=== PATIENT | male | born 1995 | race Caucasian/White ===

== ENCOUNTER 2018-05-29 23:44 | Emergency (ER) | payer OTHER ==
[~2018-05-29] VITALS: Ht 180.3 cm; Wt 115.9 kg
[2018-05-30] MEDS ORDERED: PERCOCET 5/325M1 TAB PO (00:54)
[2018-05-30 01:20] VITALS: BP 128/74
== END 2018-05-30 01:28 | disposition home or self-care (01) ==
LOC: ED 23:44
DX: S92.311A Displaced fracture of first metatarsal bone, right foot, initial encounter for closed fracture (principal); W22.8XXA Striking against or struck by other objects, initial encounter; Y92.009 Unspecified place in unspecified non-institutional (private) residence as the place of occurrence of the external cause

== ENCOUNTER 2020-12-27 20:24 | Emergency (ER) | payer OTHER ==
[~2020-12-27] VITALS: Ht 180.3 cm; Wt 115.0 kg
[~2020-12-27 20:24] MED LIST: PERCOCET 5/325M1 TAB PO
[2020-12-27 21:01] LABS: HEMATOCRIT 44.3 % (39.0-50.0); HEMOGLOBIN 15.1 g/dl (14.0-18.0); IMMATURE GRANULOCYTES 0.5 % (0.0-5.0); MEAN CELL VOLUME 84.4 fL CALC (80.0-100.0); MEAN CORPUSCULAR HGB 28.8 pG CALC (26.0-32.0); MEAN CORPUSCULAR HGB CONC 34.1 g/dL CAL (32.0-36.0); NEUT# 4.01 thou/uL (1.82-7.42); RED BLOOD COUNT 5.25 mill/uL (4.70-6.10); RED CELL DISTRI WIDTH 12.3 % (11.5-15.5)
[2020-12-27 21:59] VITALS: BP 137/61
== END 2020-12-27 21:59 | disposition home or self-care (01) ==
LOC: ED 20:24
PROVIDERS: Family Medicine
DX: B34.9 Viral infection, unspecified (principal); Z20.822 Contact with and (suspected) exposure to COVID-19

== ENCOUNTER 2021-06-02 14:38 | Emergency (ER) | payer OTHER ==
[2021-06-02] MEDS ORDERED: ZPAK PO (18:06)
[2021-06-02 18:20] VITALS: BP 127/70
== END 2021-06-02 18:30 | disposition home or self-care (01) ==
LOC: ED 14:38
DX: U07.1 COVID-19 (principal)

== ENCOUNTER 2021-06-07 20:04 | Emergency (ER) | payer OTHER ==
[~2021-06-07] VITALS: Ht 180.3 cm; Wt 113.0 kg
[~2021-06-07 20:04] MED LIST changes: +ZPAK PO
[2021-06-07 22:55] LABS: HEMATOCRIT 45.9 % (39.0-50.0); HEMOGLOBIN 15.9 g/dl (14.0-18.0); IMMATURE GRANULOCYTES 0.3 % (0.0-5.0); MEAN CORPUSCULAR HGB 29.4 pG CALC (26.0-32.0); MEAN CORPUSCULAR HGB CONC 34.6 g/dL CAL (32.0-36.0); NEUT# 2.58 thou/uL (1.82-7.42); RED BLOOD COUNT 5.4 mill/uL (4.70-6.10); RED CELL DISTRI WIDTH 11.7 % (11.5-15.5)
[2021-06-07 23:01] LABS: ALBUMIN 4.4 g/dL (3.2-5.0); ALKALINE PHOSPHATASE 66 u/l (38-126); AMYLASE 160 u/l (30-110); ANION GAP 16 (6-22 (CALC)); BUN 15 mg/dL (9-20); BUN/CREATININE RATIO 11 (12-20 (CALC)); CARBON DIOXIDE 24 mmol/l (22-30); CHLORIDE 99 mmol/l (95-108); CREATININE 1.3 mg/dL (0.7-1.3); GFR > 60 ML/MIN (>=60 (CALC)); GFR FOR AFR.AMER. > 60 ML/MIN (>=60 (CALC)); LIPASE 594 u/l (23-300); POTASSIUM 3.9 mmol/l (3.5-5.1); SGOT/AST 57 u/l (17-59); SODIUM 135 mmol/l (137-146); TOTAL PROTEIN 8.2 g/dL (6.3-8.2)
[2021-06-08] MEDS ORDERED: CIPROFLOXACN500 MG PO (00:53)
[2021-06-08] MEDS ORDERED: ONDANSETRON4 MG PO (00:53)
[2021-06-08] MEDS ORDERED: BENADRY2 EX (00:53)
[2021-06-08 02:00] VITALS: BP 131/70
== END 2021-06-08 02:08 | disposition home or self-care (01) ==
LOC: ED 20:04
PROVIDERS: Emergency Medicine
DX: U07.1 COVID-19 (principal); A08.39 Other viral enteritis; J12.82 Pneumonia due to coronavirus disease 2019
CPT/HCPCS: Q9967